=== PATIENT | male | born 1995 | race African-American/Black ===

== ENCOUNTER 2025-08-12 18:23 | Emergency (ER) | payer OTHER ==
[~2025-08-12] VITALS: Ht 182.9 cm; Wt 90.0 kg
[2025-08-12 18:39] VITALS: O2SAT 100
[2025-08-12] MEDS: CEFTRIAXONE SODIUM 500MG VIAL IM ONE (18:45)
[2025-08-12] MEDS: LIDOCAINE HCL 1% 20ML VIAL MC ONE (19:00)
[2025-08-12 19:08] LABS: CLARITY URINE CLEAR (CLEAR); COLOR URINE YELLOW (YELLOW); GLUCOSE URINE NEGATIVE (NEGATIVE); KETONES URINE 1+ (NEGATIVE); LEUKOCYTE ESTERASE URINE NEGATIVE (NEGATIVE); NITRITE URINE NEGATIVE (NEGATIVE); OCCULT BLOOD URINE NEGATIVE (NEGATIVE); PH URINE 6.5 (4.5-8.0); PROTEIN URINE NEGATIVE (NEGATIVE); SPECIFIC GRAVITY URINE 1.025 (1.005-1.030); UROBILINOGEN URINE 1.0 E.U./dL (0.2-1.0)
[2025-08-12] MEDS ORDERED: DOXY100C5 MT (19:12)
[2025-08-12] MEDS: METRONIDAZOLE 500 MG PREMIX 100 ML IV ONE (19:15)
[2025-08-12] MEDS: METRONIDAZOLE 500MG TABLET PO SCH (19:25)
[2025-08-12 19:30] VITALS: BP 148/98; PULSE 76; RESP 14; TEMP 36.9; O2SAT 100
[2025-08-15 06:10] LABS: CHLAMYDIA TRACHOMATIS NAA Negative (Negative); NEISSERIA GONORRHOEAE NAA Negative (Negative)
== END 2025-08-12 19:37 | disposition home or self-care (01) ==
LOC: ER 18:23
DX: Z11.3 Encounter for screening for infections with a predominantly sexual mode of transmission (principal); F12.90 Cannabis use, unspecified, uncomplicated; E11.9 Type 2 diabetes mellitus without complications; Z88.6 Allergy status to analgesic agent
CPT/HCPCS: 99283; 87491; 87591; 81003; 96372; J0696; J2003